=== PATIENT | female | born 1950 | race Caucasian/White ===

== ENCOUNTER 2017-10-28 08:24 | Day surgery (SDC) | payer MEDICARE ==
[~2017-10-28] VITALS: Ht 172.7 cm; Wt 70.3 kg
[~2017-10-28 08:24] MED LIST: ASPIR 8181 MG PO; CALCIUM + VITA1 EACH PO; FLAX SEED OIL1000 MG PO; GEMFIBROZIL600 MG PO; NAPROXEN SODIU220 M1 PO; PEPCID20 MG PO; VITAMIN B-121000 MCG PO; ZYRTEC10 MG PO
--- NOTE | 2017-10-28 10:03 | NUR ---
10/28/17 Valentin3 Marilynn Solorzano 3287-PATIENT ARRIVED TO PACU ON 2L NC O2 SAT 96% PATIENT REACTIVE EYES OPEN DENIES PAIN DROWSY. ABDOMEN SOFT. RR EVEN.
--- NOTE | 2017-10-28 17:01 | OR ---
[facility] [address], [place] [address] Signed DATE OF OPERATION: 10/28/2017 SURGEON: Jackson Hernandez MD COLONOSCOPY REPORT PREOPERATIVE DIAGNOSES: 1. Screening. 2. Hemorrhoids. 3. History of Clostridium difficile colitis following root canal and antibiotics. POSTOPERATIVE DIAGNOSIS: [id number] internal hemorrhoids. PROCEDURE: Colonoscopy without biopsy. ESTIMATED BLOOD LOSS: None. INDICATIONS: Susanna is a 67-year-old female who was asked to see me for a followup screening colonoscopy. She describes a negative colonoscopy with Dr. Zapata back in 2006. She describes she feels a small external hemorrhoid. Otherwise, she said she has no lower GI complaints. There is no family history of colon cancer or polyps. In the office, I gave her a pamphlet on colonoscopy. We looked at that together along with the risks including, but not limited to gas bloating, crampy abdominal pain, bleeding, perforation, requiring surgery, and missed diagnosis. She also understands the need for IV conscious sedation. She expressed understanding and wished to proceed. PROCEDURE NOTE: Susanna was taken into our endoscopy suite and placed in the left lateral decubitus position. She was given IV sedation with 9 mg of Versed and 150 mcg of fentanyl to cover the case. A digital rectal exam was performed. She had just a tiny external hemorrhoid somewhat anteriorly and on the right side. After this, the adult colonoscope was introduced and advanced all around into the cecum under direct visualization of camera without difficulty. Her prep was good. The scope was slowly withdrawn. We took pictures throughout for photo documentation. The entire colon and rectum were unremarkable. Upon retroflexion of the scope, she does have [id number]-[id number] internal hemorrhoid columns. After this, the gas was suctioned out and the colonoscope Electronically Signed By: JACKSON HERNANDEZ MD 10/28/17 1701 PATIENT NAME: SUSANNA PORTILLO OPERATIVE REPORT DATE OF : 52 REPORT #: [id number] PHYSICIAN: JACKSON HERNADNEZ MD PCP: JASMINE MENDOZA REPORT IS CONFIDENTIAL AND NOT TO BE RELEASED WITHOUT AUTHORIZATION [facility] [address], [place] [address] Signed removed. Susanna tolerated the procedure quite well. RECOMMENDATIONS: Susanna is welcome to follow up in 10 years for repeat colonoscopy so long as her health holds up. MD DAVID Garcia/FELICIANO /[id number] cc: MD Paige Garcia FNP Copies: JACKSON HERNANDEZ MD, LISA R FNP ~ Electronically Signed By: JACKSON HERNANDEZ MD 10/28/17 1701 PATIENT NAME: SUSANNA PORTILLO OPERATIVE REPORT DATE OF : 52 REPORT #: [id number] PHYSICIAN: JACKSON HERNANDEZ MD PCP: JASMINE MENDOZA REPORT IS CONFIDENTIAL AND NOT TO BE RELEASED WITHOUT AUTHORIZATION
== END 2017-10-28 10:58 | disposition home or self-care (01) ==
LOC: OPS 08:24 → DS 09:45 → OPS 09:45
PROVIDERS: Colon & Rectal Surgery
PROC: 0DJD8ZZ Inspection of Lower Intestinal Tract, Via Natural or Artificial Opening Endoscopic (ICD-10-PCS; principal; 2017-10-28 09:45)
DX: Z12.11 Encounter for screening for malignant neoplasm of colon (principal); K64.8 Other hemorrhoids; K64.4 Residual hemorrhoidal skin tags; E78.5 Hyperlipidemia, unspecified; Z79.82 Long term (current) use of aspirin; Z87.19 Personal history of other diseases of the digestive system; Z79.899 Other long term (current) drug therapy
CPT/HCPCS: 99153; G0500; J2250; J3010; J7120

== ENCOUNTER 2021-11-26 09:11 | Emergency (ER) | payer MEDICARE ==
[~2021-11-26] VITALS: Ht 172.7 cm; Wt 69.3 kg
[2021-11-26] MEDS ORDERED: VITAMIN D31250 MC1 PO (09:37)
[2021-11-26] MEDS ORDERED: ATORVASTATIN CA20 MG PO (09:38)
[2021-11-26] MEDS ORDERED: VALSARTAN80 MG PO (09:38)
== END 2021-11-26 10:41 | disposition home or self-care (01) ==
LOC: ED 09:11
DX: U07.1 COVID-19 (principal)
CPT/HCPCS: 99283